=== PATIENT | female | born 1935 | race Caucasian/White ===

== ENCOUNTER 2021-12-19 12:23 | Emergency (ER) | payer BC ==
[2021-12-19 12:38] VITALS: BP 136/75; PULSE 80; RESP 18; TEMP 98.3; BMI 31.6
[2021-12-19] MEDS ORDERED: DOCUSATE SODIUM 100 MG CAPSULE (FP) PO ONE ×2 (12:38→12:39)
[2021-12-19 14:56] LABS: EPITHELIAL CELLS FEW /hpf
== END 2021-12-19 13:48 | disposition home or self-care (01) ==
LOC: FER 12:23
DX: K59.00 Constipation, unspecified (principal)
CPT/HCPCS: 81003; 81015; 87086; 87186; 99283-25